=== PATIENT | male | born 1970 | race American Indian/Alaskan Native ===

== ENCOUNTER 2017-12-22 21:36 | Emergency (ER) | payer OTHER ==
[2017-12-22] MEDS ORDERED: NACL 0.9% 1000 ML 1,000 ML IV ONE (22:12)
[2017-12-22 22:33] LABS: Basophils # (Auto) 0.1 K/mm3 (0.0-0.1); Basophils % (Auto) 1.5 % (0.0-1.8); Eosinophils # (Auto) 0.2 K/mm3 (0.0-0.4); Eosinophils % (Auto) 2.2 % (0.0-4.3); Hematocrit 38.8 % (35.5-45.6); Hemoglobin 13.6 gm/dl (11.8-15.2); Lymphocytes % (Auto) 28.4 % (13.4-35.0); Mean Corpuscular HGB Conc 35 % (32-34); Mean Corpuscular Hemoglobin 30 pg (28-32); Mean Corpuscular Volume 85 fl (84-94); Monocytes # (Auto) 0.6 K/mm3 (0.0-0.8); Monocytes % (Auto) 8.1 % (0.0-7.3); Platelet Count 283 K/mm3 (140-440); Red Blood Count 4.57 M/mm3 (3.65-5.03)
[2017-12-22 23:04] LABS: Calcium 9.6 mg/dL (8.4-10.2)
[2017-12-22 23:22] LABS: INR 0.88 (0.87-1.13)
[2017-12-22 23:23] LABS: Partial Thromboplastin Time 28.4 Sec. (24.2-36.6)
[2017-12-23 01:05] LABS: Bilirubin,Urine NEG (Negative); Blood,Urine SM (Negative); Color,Urine Yellow (Yellow); Urobilinogen,Urine < 2.0 mg/dL (<2.0)
--- NOTE | 2017-12-23 02:52 | Emergency Department Report ---
ED Abdominal Pain HPI - General Chief Complaint: Abdominal Pain Stated Complaint: STOMACH PAIN HISTORY OF DIABETES Time Seen by Provider: 12/23/17 02:28 Source: patient Mode of arrival: Ambulatory Limitations: No Limitations - History of Present Illness Initial Comments: 47-year-old man presents with approximate 6 hours history of mid abdominal pain , one episode of nausea vomiting, which started approximately 6 hours after his last meal. He had had a burger in the middle of the afternoon, initially tolerated that, but developed mid abdominal discomfort approximately 6 hours later, and with his single episode of vomiting, this was mostly liquid, but did not regurgitate any food. He has not vomited since that time, discomfort has subsided by about half, been initially 6-7 out of 10, now is about 3 out of 10, and is a general ache in the mid abdominal area without radiation. He has not had any diarrhea. No fever chills or diaphoresis. Patient is an insulin-dependent diabetic, but has no history of gastrointestinal problems, no gastroparesis, no known cold lithiasis, and has not had any GI surgeries. He has no urinary symptoms, no flank pain, no back pain, and reports that he has had some belching during the evening, but not frequently, and no flatus. Severity scale (0 -10): 0 - Related Data Home Medications Medication Instructions Recorded Confirmed Last Taken Aspirin [Aspirin BABY CHEW TAB] 81 mg PO QDAY 09/10/13 07/18/14 Unknown Insulin Glargine,Hum.rec.anlog 50 unit SQ QHS 09/10/13 07/18/14 Unknown [Lantus] Insulin Lispro [HumaLOG VIAL] 09/10/13 07/18/14 Unknown Previous Rx's Medication Instructions Recorded Last Taken Type Metoprolol [Lopressor TAB] 25 mg PO BID #60 tablet 09/12/13 Unknown Rx Rosuvastatin (Nf) [Crestor] 10 mg PO QHS #30 tablet 09/12/13 Unknown Rx amLODIPine [Norvasc] 5 mg PO QDAY #30 tablet 09/12/13 Unknown Rx Insulin Glargine,Hum.rec.anlog 50 unit SQ QHS #1 vial 07/18/14 Unknown Rx [Lantus] Insulin Lispro [HumaLOG] 100 unit SQ AC #1 vial 07/18/14 Unknown Rx amLODIPine [Norvasc] 10 mg PO DAILY #30 tab 07/18/14 Unknown Rx Ondansetron [Zofran ODT TAB] 8 mg PO Q8HR PRN #10 tab.rapdis 12/23/17 Unknown Rx Allergies Allergy/AdvReac Type Severity Reaction Status Date / Time No Known Allergies Allergy Verified 09/10/13 09:33 ED Review of Systems ROS: Stated complaint: STOMACH PAIN HISTORY OF DIABETES Other details as noted in HPI ED Past Medical Hx - Past Medical History Previous Medical History?: Yes Hx Hypertension: Yes Hx Diabetes: Yes Hx Renal Disease: Yes - Surgical History Past Surgical History?: Yes Additional Surgical History: Hernia - Social History Smoking Status: Never Smoker - Medications Home Medications: Home Medications Medication Instructions Recorded Confirmed Last Taken Type Aspirin [Aspirin BABY CHEW TAB] 81 mg PO QDAY 09/10/13 07/18/14 Unknown History Insulin Glargine,Hum.rec.anlog 50 unit SQ QHS 09/10/13 07/18/14 Unknown History [Lantus] Insulin Lispro [HumaLOG VIAL] 09/10/13 07/18/14 Unknown History Metoprolol [Lopressor TAB] 25 mg PO BID #60 tablet 09/12/13 07/18/14 Unknown Rx Rosuvastatin (Nf) [Crestor] 10 mg PO QHS #30 tablet 09/12/13 07/18/14 Unknown Rx amLODIPine [Norvasc] 5 mg PO QDAY #30 tablet 09/12/13 07/18/14 Unknown Rx Insulin Glargine,Hum.rec.anlog 50 unit SQ QHS #1 vial 07/18/14 Unknown Rx [Lantus] Insulin Lispro [HumaLOG] 100 unit SQ AC #1 vial 07/18/14 Unknown Rx amLODIPine [Norvasc] 10 mg PO DAILY #30 tab 07/18/14 Unknown Rx Ondansetron [Zofran ODT TAB] 8 mg PO Q8HR PRN #10 tab.rapdis 12/23/17 Unknown Rx ED Physical Exam - General Limitations: No Limitations ED Course Vital Signs 12/22/17 12/22/17 12/22/17 21:35 22:09 22:21 Temperature 36.9 C 36.9 C Pulse Rate 106 H 109 H 98 H Respiratory 18 18 20 Rate Blood Pressure 192/116 192/116 Blood Pressure 154/101 [Left] O2 Sat by Pulse 96 97 Oximetry 08/12/18 08/12/18 01:45 03:52 Temperature 36.8 C Pulse Rate 94 H Respiratory 20 20 Rate Blood Pressure Blood Pressure 151/97 [Left] O2 Sat by Pulse 97 99 Oximetry ED Medical Decision Making - Lab Data Result diagrams: 12/22/17 22:17 12/22/17 22:17 - Radiology Data Radiology results: report reviewed (CT scan abdomen and pelvis negative for acute intra-abdominal pathology.) - Medical Decision Making Patient has isolated abdominal discomfort, which has been improving steadily since he has arrived, may well be related to food. He is hyperglycemic, glucose was 541, the patient reports that he did not take his evening dose of basal insulin. He is on sliding scale routinely, and adjust his mealtime insulin on the basis of his glucose level. He has not an acidosis, and can be discharged back to his usual care. He declines offer for pain medication, and we'll give him a short course of antiemetics, as well as a couple days' rest, and clear liquid diet until he is feeling better. Critical Care Time: No Critical care attestation.: If time is entered above; I have spent that time in minutes in the direct care of this critically ill patient, excluding procedure time. ED Disposition Clinical Impression: Insulin dependent diabetes mellitus, DM (diabetes mellitus), secondary uncontrolled Abdominal pain Qualifiers: Abdominal location: upper abdomen, unspecified Qualified Code(s): R10.10 - Upper abdominal pain, unspecified Disposition: DC-01 TO HOME OR SELFCARE Is pt being admited?: No Does the pt Need Aspirin: No Condition: Stable Instructions: Diabetes Mellitus Type 2 in Adults (ED), Acute Abdominal Pain (ED ) Additional Instructions: Abdominal examination is negative for serious medical illness, and this could just be a simple case of food upset. Eat a bland diet, drink plenty of liquids while you are recovering, and we are prescribing ondansetron, a medication to treat nausea. Blood sugar was high today, 541, but this is probably because you did not take her insulin last night, and you may correct this with the sliding scale that he use for your regular glucose control. Have recheck by your doctor in 3 days, but return to the emergency department any time if you feeling worse or having new symptoms. Prescriptions: Ondansetron [Zofran ODT TAB] 8 mg PO Q8HR PRN #10 tab.rapdis PRN Reason: Nausea Referrals: LEENA BATES MD [Primary Care Provider] - 3-5 Days Forms: Work/School Release Form(ED) Time of Disposition: 05:00
--- NOTE | 2017-12-23 04:00 | Cat Scan Report ---
FINAL REPORT EXAM: CT ABDOMEN PELVIS W CON HISTORY: abdominal pain TECHNIQUE: CT images are acquired through the Abdomen and Pelvis arterial and delayed phases following intravenous administration of contrast. Transaxial, coronal and sagittal reformations are provided. PRIORS: None FINDINGS: Partially visualized intrathoracic contents are unremarkable. The liver, gallbladder, pancreas, spleen, and adrenal glands are unremarkable. Kidneys are normal in size, axis and position. Right upper pole 15 millimeter hypoenhancing lesion is indeterminate. Left upper pole 6 millimeter hypo enhancing lesion is too small to characterize but is probably a benign cyst. Urinary bladder is unremarkable. Small and large bowel are normal in caliber. Appendix is normal. No free air, free fluid, or lymphadenopathy identified. Aorta is normal in course and caliber. Superficial soft tissues are unremarkable. Right gluteal intramuscular lipoma is noted. No acute or aggressive appearing skeletal findings. IMPRESSION: No acute findings in the abdomen or pelvis. Indeterminate 15 millimeter cystic lesion in the right kidney. Initial further evaluation with ultrasound is recommended if this finding has not been previously documented.
[2017-12-23 06:01] VITALS: BP 140/86
== END 2017-12-23 06:02 | disposition home or self-care (01) ==
LOC: ED 21:36
DX: R10.10 Upper abdominal pain, unspecified (principal); R11.2 Nausea with vomiting, unspecified; I10 Essential (primary) hypertension; E11.9 Type 2 diabetes mellitus without complications; Z79.4 Long term (current) use of insulin
CPT/HCPCS: 36415; 74177; 80053; 81001; 83690; 85025; 85610; 85730; 96360; 96361; 99284; J7030; Q9967

== ENCOUNTER 2018-06-28 11:44 | Outpatient (CLI) | payer SELFPAY ==
[2018-06-28 12:18] LABS: Hematocrit 37.4 % (35.5-45.6); Hemoglobin 12.5 gm/dl (11.8-15.2); Mean Corpuscular HGB Conc 33 % (32-34); Mean Corpuscular Volume 85 fl (84-94); Platelet Count 265 K/mm3 (140-440); Red Blood Count 4.42 M/mm3 (3.65-5.03); Red Cell Distribution Width 14.1 % (13.2-15.2)
[2018-06-28 12:40] LABS: Erythrocyte Sedimentation Rate 64 mm/Hr (0-20)
[2018-06-28 12:41] LABS: C-Reactive Protein 0.6 mg/dL (0.00-1.30)
== END 2018-06-28 11:45 | disposition home or self-care (01) ==
LOC: LAB 11:44
PROVIDERS: ATTEND Internal Medicine Infectious Disease
DX: E11.621 Type 2 diabetes mellitus with foot ulcer (principal); L97.519 Non-pressure chronic ulcer of other part of right foot with unspecified severity; I10 Essential (primary) hypertension; E66.9 Obesity, unspecified; E78.5 Hyperlipidemia, unspecified
CPT/HCPCS: 36415; 82565; 84450; 84460; 84520; 85027; 85652; 86140

== ENCOUNTER 2018-07-28 19:44 | Emergency (ER) | payer OTHER ==
--- NOTE | 2018-07-28 20:00 | Emergency Department Report ---
Chief Complaint: Abdominal Pain Stated Complaint: RIGHT LEG PAIN ABD PAIN Time Seen by Provider: 07/28/18 19:58 - HPI History of Present Illness: pmh htn dm rx bp antibiotic for foot 2 m old hx of r foot surgery did not follow up co 1. r foot pain 2 abd pain- generalized vomiting no dysuria ambulatory denies cig/etoh/drugs mse completed - Exam Vital Signs: Vital Signs 07/28/18 07/28/18 19:49 19:50 Temperature 97.4 F L 97.9 F Pulse Rate 118 H 118 H Respiratory 18 18 Rate Blood Pressure 138/86 Blood Pressure 138/86 [Left] O2 Sat by Pulse 98 98 Oximetry MSE screening note: Focused history and physical exam performed. Due to findings the following was ordered: ED Disposition for MSE Condition: Stable
[2018-07-28 20:40] LABS: Basophils # (Auto) 0.1 K/mm3 (0.0-0.1); Basophils % (Auto) 1.1 % (0.0-1.8); Eosinophils # (Auto) 0.1 K/mm3 (0.0-0.4); Eosinophils % (Auto) 1.1 % (0.0-4.3); Hematocrit 43.1 % (35.5-45.6); Hemoglobin 14.7 gm/dl (11.8-15.2); Lymphocytes # (Auto) 2.1 K/mm3 (1.2-5.4); Lymphocytes % (Auto) 20.4 % (13.4-35.0); Mean Corpuscular Volume 82 fl (84-94); Monocytes # (Auto) 0.8 K/mm3 (0.0-0.8); Monocytes % (Auto) 8.3 % (0.0-7.3); Platelet Count 467 K/mm3 (140-440); Red Cell Distribution Width 13.8 % (13.2-15.2)
[2018-07-28 20:44] LABS: Mean Corpuscular HGB Conc 34 % (32-34); Red Blood Count 5.23 M/mm3 (3.65-5.03)
[2018-07-28] MEDS ORDERED: MORPHINE IV ONE (20:44)
[2018-07-28] MEDS ORDERED: ZOFRAN IV ONE ×2 (20:44→22:01)
[2018-07-28 20:45] LABS: Alanine Aminotransferase 7 units/L (7-56); Albumin 4.4 g/dL (3.9-5); BUN/Creatinine Ratio 16; Blood Urea Nitrogen 32 mg/dL (9-20); Calcium 10.4 mg/dL (8.4-10.2); Hemolysis Index 8
[2018-07-28 20:47] LABS: Bilirubin,Direct < 0.2 mg/dL (0-0.2)
--- NOTE | 2018-07-28 20:56 | Emergency Department Report ---
ED General Adult HPI - General Chief complaint: Abdominal Pain Stated complaint: RIGHT LEG PAIN ABD PAIN Time Seen by Provider: 07/28/18 19:58 Source: patient Mode of arrival: Ambulatory Limitations: No Limitations - History of Present Illness Initial comments: Mr. Zapata is 48 yo male with hx of HTN, DM, dyslipidemia, diabetic foot infection, CKD who presents with chronic right foot wound and abdominal pain. In May, he underwent incision/drainage/wound debridement on right foot by vascular surgeon. He is quite frustrated because he has been able to obtain a wound care appointment. He is closed followed by PCP Dr. Dunn. Has an appointment tomorrow morning. Secondly, he has had generalized abdominal pain for the past 2 days. Vomiting food and liquid. -: Gradual, days(s) (2), month(s) (2) Location: abdomen, right, lower extremity Severity scale (0 -10): 9 Quality: aching Consistency: constant Improves with: none Worsens with: none Associated Symptoms: nausea/vomiting - Related Data Home Medications Medication Instructions Recorded Confirmed Last Taken Insulin Glargine,Hum.rec.anlog 50 unit SQ QHS 09/10/13 07/18/14 Unknown [Lantus] Insulin Lispro [HumaLOG VIAL] 09/10/13 07/18/14 Unknown Previous Rx's Medication Instructions Recorded Last Taken Type Insulin Glargine,Hum.rec.anlog 50 unit SQ QHS #1 vial 07/18/14 Unknown Rx [Lantus] Insulin Lispro [HumaLOG VIAL] 100 unit SQ AC #1 vial 07/18/14 Unknown Rx Ondansetron [Zofran ODT TAB] 8 mg PO Q8HR PRN #10 tab.rapdis 12/23/17 Unknown Rx Aspirin [Aspirin BABY CHEW TAB] 81 mg PO QDAY #30 tab.chew 06/09/18 Unknown Rx HYDROcodone/APAP 7.5-325 [[place] 1 each PO Q4H PRN #12 tablet 06/09/18 Unknown Rx 7.5-325 mg TAB] Lispro Insulin [Humalog] 0 unit SUB-Q ACHS units 06/09/18 Unknown Rx Metoprolol [Lopressor TAB] 25 mg PO BID #60 tablet 06/09/18 Unknown Rx Rosuvastatin (Nf) [Crestor] 10 mg PO QHS #30 tablet 06/09/18 Unknown Rx amLODIPine [Norvasc] 10 mg PO DAILY #30 tab 06/09/18 Unknown Rx cloNIDine [Catapres] 0.1 mg PO Q12HR #60 tablet 06/09/18 Unknown Rx hydrALAZINE [Apresoline TAB] 50 mg PO Q8HR #90 tab 06/09/18 Unknown Rx Cephalexin [Keflex] 500 mg PO Q6H 10 Days #40 capsule 07/28/18 Unknown Rx Promethazine [Phenergan TAB] 25 mg PO Q6HR PRN #10 tab 07/28/18 Unknown Rx Allergies Allergy/AdvReac Type Severity Reaction Status Date / Time No Known Allergies Allergy Verified 09/10/13 09:33 ED Review of Systems ROS: Stated complaint: RIGHT LEG PAIN ABD PAIN Other details as noted in HPI Comment: All other systems reviewed and negative Constitutional: malaise. denies: fever Gastrointestinal: abdominal pain, nausea, vomiting ED Past Medical Hx - Past Medical History Previous Medical History?: Yes Hx Hypertension: Yes Hx Diabetes: Yes Hx Deep Vein Thrombosis: No Hx Renal Disease: Yes Hx HIV: No - Surgical History Past Surgical History?: Yes Hx Pacemaker: No Hx Internal Defibrillator: No Additional Surgical History: Hernia, Right foot Surgery - Social History Smoking Status: Never Smoker Substance Use Type: None - Medications Home Medications: Home Medications Medication Instructions Recorded Confirmed Last Taken Type Insulin Glargine,Hum.rec.anlog 50 unit SQ QHS 09/10/13 07/18/14 Unknown History [Lantus] Insulin Lispro [HumaLOG VIAL] 09/10/13 07/18/14 Unknown History Insulin Glargine,Hum.rec.anlog 50 unit SQ QHS #1 vial 07/18/14 Unknown Rx [Lantus] Insulin Lispro [HumaLOG VIAL] 100 unit SQ AC #1 vial 07/18/14 Unknown Rx Ondansetron [Zofran ODT TAB] 8 mg PO Q8HR PRN #10 tab.rapdis 12/23/17 Unknown Rx Aspirin [Aspirin BABY CHEW TAB] 81 mg PO QDAY #30 tab.chew 06/09/18 Unknown Rx HYDROcodone/APAP 7.5-325 [[place] 1 each PO Q4H PRN #12 tablet 06/09/18 Unknown Rx 7.5-325 mg TAB] Lispro Insulin [Humalog] 0 unit SUB-Q ACHS units 06/09/18 Unknown Rx Metoprolol [Lopressor TAB] 25 mg PO BID #60 tablet 06/09/18 Unknown Rx Rosuvastatin (Nf) [Crestor] 10 mg PO QHS #30 tablet 06/09/18 Unknown Rx amLODIPine [Norvasc] 10 mg PO DAILY #30 tab 06/09/18 Unknown Rx cloNIDine [Catapres] 0.1 mg PO Q12HR #60 tablet 06/09/18 Unknown Rx hydrALAZINE [Apresoline TAB] 50 mg PO Q8HR #90 tab 06/09/18 Unknown Rx Cephalexin [Keflex] 500 mg PO Q6H 10 Days #40 capsule 07/28/18 Unknown Rx Promethazine [Phenergan TAB] 25 mg PO Q6HR PRN #10 tab 07/28/18 Unknown Rx ED Physical Exam - General Limitations: No Limitations General appearance: alert, in no apparent distress - Head Head exam: Present: atraumatic, normocephalic - Eye Eye exam: Present: normal appearance - ENT ENT exam: Present: mucous membranes moist - Neck Neck exam: Present: normal inspection, full ROM - Respiratory Respiratory exam: Present: normal lung sounds bilaterally. Absent: respiratory distress, wheezes, rales, rhonchi - Cardiovascular Cardiovascular Exam: Present: regular rate, normal rhythm, normal heart sounds. Absent: systolic murmur, diastolic murmur, rubs, gallop - GI/Abdominal GI/Abdominal exam: Present: soft, normal bowel sounds. Absent: distended, tenderness, guarding, rebound - Rectal Rectal exam: Present: deferred - Extremities Exam Extremities exam: Present: other (old dirty bandage in place right foot: 2 cm x 5 cm beefy red wound healthy no infection) - Back Exam Back exam: Present: normal inspection - Neurological Exam Neurological exam: Present: alert, oriented X3 - Psychiatric Psychiatric exam: Present: normal affect, normal mood - Skin Skin exam: Present: warm, dry, intact, normal color. Absent: rash ED Course Vital Signs 07/28/18 07/28/18 07/28/18 19:49 19:50 19:57 Temperature 97.4 F L 97.9 F 97.4 F L Pulse Rate 118 H 118 H 118 H Respiratory 18 18 18 Rate Blood Pressure 138/86 138/86 Blood Pressure 138/86 [Left] O2 Sat by Pulse 98 98 98 Oximetry 07/28/18 07/28/18 20:50 21:33 Temperature 98.1 F Pulse Rate 78 Respiratory 18 18 Rate Blood Pressure Blood Pressure 168/82 [Left] O2 Sat by Pulse 100 Oximetry ED Medical Decision Making - Lab Data Result diagrams: 07/28/18 20:16 07/28/18 20:16 - Radiology Data Radiology results: report reviewed cystitis - Medical Decision Making 1. foot wound healthy will benefit from wound care, wound dressing applied, referred to vascular surgeon who performed procedure, also recommended referred from PCP Dr. Dunn 2. abdominal pain, generalized, CT A/P revealed findings of cystitis. rx: keflex/promethazine. He received IV in ED. Critical care attestation.: If time is entered above; I have spent that time in minutes in the direct care of this critically ill patient, excluding procedure time. ED Disposition Clinical Impression: Abdominal pain, Cystitis, Open wound of foot Disposition: DC-01 TO HOME OR SELFCARE Is pt being admited?: No Does the pt Need Aspirin: No Condition: Stable Instructions: Urinary Tract Infection in Men (ED), Chronic Wound Care (ED) Prescriptions: Cephalexin [Keflex] 500 mg PO Q6H 10 Days #40 capsule Promethazine [Phenergan TAB] 25 mg PO Q6HR PRN #10 tab PRN Reason: Nausea Referrals: NIKO HOANG DO [Staff Physician] - 3-5 Days
[2018-07-28 21:07] VITALS: BP 168/82
--- NOTE | 2018-07-28 23:12 | Cat Scan Report ---
PROCEDURE: CT ABDOMEN PELVIS WO CON TECHNIQUE: Computerized axial tomography of the abdomen and pelvis was performed without intravenous contrast. This study is performed without intravascular contrast material and its sensitivity for ab dominal and pelvic pathology, including neoplasms, inflammation, abscess, free fluid, thrombosis, art erial dissection and infarction, is reduced compared with a contrast enhanced study. CT DOSE LENGTH PRODUCT: mGycm HISTORY: abdominal pain COMPARISONS: December 23, 2017 . FINDINGS: Liver, spleen, pancreas and adrenal glands are within normal limits. Bilateral kidneys demonstrate no rmal density without calculi or hydronephrosis. Aorta is of normal caliber. There is no free fluid or free air. Gallbladder is unremarkable. Small bowel loops are within normal limits. Moderate degree o f residual stool is noted. Appendix is normal. Urinary bladder is partially filled with normal outlin es. Bladder cruz are mildly thickened. Mild degree degenerative changes are noted involving the lumb ar spine. Vertebral height is normal. IMPRESSION: Moderate degree of residual stool Mild degree urinary bladder wall thickening may represent cystitis appropriate clinical setting. Otherwise no acute intra-abdominal or pelvic pathology as visualized on this noncontrast study. This document is electronically signed by Sebastien Farmer MD., July 28 2018 11:10:08 PM ET
[2018-07-28] MEDS ORDERED: NACL 0.9% 1000 ML 1,000 ML IV ONE (23:23)
[2018-07-28] MEDS ORDERED: PEPCID IV ONE (23:23)
[2018-07-29] MEDS ORDERED: PERCOCET 5/325 PO ONE (00:49)
== END 2018-07-29 01:49 | disposition home or self-care (01) ==
LOC: ED 19:44
DX: S91.301A Unspecified open wound, right foot, initial encounter (principal); N30.90 Cystitis, unspecified without hematuria; I10 Essential (primary) hypertension; E11.9 Type 2 diabetes mellitus without complications; Z79.4 Long term (current) use of insulin; X58.XXXA Exposure to other specified factors, initial encounter; Y93.89 Activity, other specified; Y92.89 Other specified places as the place of occurrence of the external cause; Y99.8 Other external cause status
CPT/HCPCS: 36415; 74176; 80048; 80076; 82805; 82962; 83690; 85025; 93005; 93010; 96361; 96374; 96375; 96376; 99284; J2270; J2405; J7030

== ENCOUNTER 2018-08-06 14:51 | Emergency (ER) | payer OTHER ==
--- NOTE | 2018-08-06 14:59 | Emergency Department Report ---
Chief Complaint: Extremity Problem,Nontraumatic Stated Complaint: EVAL RT FOOT ULCER/SENT BY Time Seen by Provider: 08/06/18 14:58 - HPI History of Present Illness: This is a 48 y.o. male that presents with evaluation of diabetic wound to right foot. Patient states PCP told him to follow up here because wound is not healing correctly. - Exam Vital Signs: Vital Signs 08/06/18 15:01 Temperature 98.5 F Pulse Rate 103 H Respiratory 18 Rate Blood Pressure 131/91 O2 Sat by Pulse 98 Oximetry MSE screening note: Focused history and physical exam performed. Due to findings the following was ordered: Labs ED Disposition for MSE Condition: Stable
[2018-08-06 15:02] VITALS: BP 131/91
[2018-08-06 16:17] LABS: Basophils # (Auto) 0.1 K/mm3 (0.0-0.1); Basophils % (Auto) 0.9 % (0.0-1.8); Eosinophils # (Auto) 0.1 K/mm3 (0.0-0.4); Eosinophils % (Auto) 1.3 % (0.0-4.3); Hematocrit 37.6 % (35.5-45.6); Hemoglobin 12.9 gm/dl (11.8-15.2); Lymphocytes # (Auto) 1.8 K/mm3 (1.2-5.4); Lymphocytes % (Auto) 18.4 % (13.4-35.0); Mean Corpuscular HGB Conc 34 % (32-34); Mean Corpuscular Volume 83 fl (84-94); Monocytes # (Auto) 0.6 K/mm3 (0.0-0.8); Monocytes % (Auto) 6.3 % (0.0-7.3); Platelet Count 415 K/mm3 (140-440); Red Blood Count 4.52 M/mm3 (3.65-5.03); Red Cell Distribution Width 13.6 % (13.2-15.2)
[2018-08-06 16:50] LABS: Albumin 3.9 g/dL (3.9-5); Calcium 9.5 mg/dL (8.4-10.2)
== END 2018-08-07 01:00 | disposition left against medical advice (07) ==
LOC: ED 14:51
DX: M79.671 Pain in right foot (principal); Z53.21 Procedure and treatment not carried out due to patient leaving prior to being seen by health care provider
CPT/HCPCS: 36415; 80053; 85025